=== PATIENT | female | born 1965 | race Caucasian/White ===

== ENCOUNTER 2018-07-27 14:33 | Emergency (ER) | payer BC ==
[~2018-07-27] VITALS: Ht 167.6 cm; Wt 100.2 kg
[2018-07-27 15:19] VITALS: Ht 167.6 cm; Wt 100.2 kg
[2018-07-27 17:30] VITALS: BP 160/80
== END 2018-07-27 17:30 | disposition home or self-care (01) ==
LOC: ED 14:33
DX: N15.9 Renal tubulo-interstitial disease, unspecified (principal); I50.9 Heart failure, unspecified; E11.9 Type 2 diabetes mellitus without complications; E78.00 Pure hypercholesterolemia, unspecified; F32.9 Major depressive disorder, single episode, unspecified
CPT/HCPCS: J0696